=== PATIENT | male | born 1970 | race Caucasian/White ===

== ENCOUNTER 2016-04-12 02:50 | Observation (INO) | payer OTHER ==
[~2016-04-12] VITALS: Ht 180.3 cm; Wt 141.7 kg
[2016-04-12] VITALS (7 sets, daily range): BP systolic 120–143; BP diastolic 74–84; PULSE 64–74; TEMP 36.5–36.6; O2SAT 94–95; Ht 180.3 cm; Wt 141.7 kg
[2016-04-12 03:37] LABS: BASO % 0.2 %; BASO ABS # 0.01 K/uL (0-0.2); COMPLETE YES; EOS % 1.5 %; HEMATOCRIT 41.9 % (42-52); IG% 0.6 %; LYMPH % 14.2 %; LYMPH ABS # 0.93 K/uL (1.2-3.4); MEAN CELL VOLUME 89.9 fL (80-100); MEAN CORPUSCULAR HGB CONC 35.6 g/dl (32-36); MEAN PLATELET VOLUME 10.6 fL (7.4-10.4); MONO % 8.7 %; NEUT % 74.8 %; PLATELET COUNT 248 K/uL (130-400); RED BLOOD COUNT 4.66 M/uL (4.7-6.1); WHITE BLOOD COUNT 6.56 K/uL (4.8-10.8)
--- NOTE | 2016-04-12 03:59 | EMERGENCY ROOM VISIT NOTE ---
History Report prepared by Ale: Spencer Tolbert Under the Supervision of: Dr. Inna Jackson D.O. First contact with patient: 03:03 Chief Complaint: CHEST PAIN Stated Complaint: DULL PAIN IN CHEST,LEFT ARM NUMB AND HOT Nursing Triage Summary: Left sided chest pain radiating down left arm with inspiration. 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 The pain is rated 5/10 in severity. 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 He also has numbness radiating down his left arm to the 4th and 5th digits. The patient has also had some abdominal pain and diarrhea. He denies radiation to the jaw. The patient also denies any fevers, chills, or abnormal shortness of breath. The patient never had these symptoms before. His father had a CABG x 4 in his 60's. He does not have a history of diabetes. Source of History: patient Onset: two days Position: chest (left upper) Symptom Intensity: 5/10 Quality: pressure Timing: constant Modifying Factors (Worsening): exertion Associated Symptoms: + abdominal pain, + diarrhea, + numbness, No SOB, No chills, No fevers Review of Systems See HPI for pertinent positives & negatives. A total of 10 systems reviewed and were otherwise negative. Past Medical & Surgical Medical Problems: (1) MS (multiple sclerosis) Family History Heart disease Social History Smoking Status: Current Every Day Smoker Housing Status: lives with family Current/Historical Medications Scheduled Ascorbic Acid (Ascorbic Acid), Unknown Dose PO DAILY Aspirin (Aspirin Ec), 81 MG PO DAILY Cholecalciferol (Vitamin D3), 2,000 UNITS PO BID Citalopram (Citalopram Hydrobromide), Unknown Dose PO DAILY Dimethyl Fumarate (Tecfidera), Unknown Dose PO DAILY Fish Oil (Peru-3), 1 CAP PO DAILY Lisinopril (Zestril), Unknown Dose PO DAILY Thiamine Hcl (Vitamin B-1), Unknown Dose PO DAILY Vitamin E (Vitamin E-400), Unknown Dose PO DAILY Allergies Coded Allergies: Fish Allergy (Verified Allergy, Unknown, unknown, 04/12/16) Physical Exam Vital Signs Date Time Temp Pulse Resp B/P Pulse Ox O2 Delivery O2 Flow Rate FiO2 04/12/16 04:00 78 20 147/81 95 Room Air 04/12/16 03:32 Room Air 04/12/16 03:26 85 04/12/16 03:11 95 Room Air 04/12/16 03:08 36.9 83 16 155/83 93 Room Air Physical Exam HEENT: Head - normocephalic and atraumatic Pupils are equal, round, and reactive to light. Extraocular eye muscles are intact, and sclera are anicteric. Nose - moist nasal mucosa without discharge. Mouth - moist buccal mucosa. Oropharynx is nonerythematous and there is no tonsillar exudate or edema noted. Neck: Supple; no JVD, nuchal rigidity, cervical lymphadenopathy, or auscultated bruits. Heart: Regular rate and rhythm. There is a normal S1 and S2 with no murmurs, clicks, or gallops appreciated. Lungs: Clear to auscultation bilaterally with no wheezes, rales, or rhonchi. Abdomen: Soft, completely nontender, nondistended, with good bowel sounds. There are no palpable pulsatile masses or hepatosplenomegaly. There is no guarding, rigidity, or rebound noted. Extremities: No evidence of cyanosis, clubbing, or edema. There are easily palpable peripheral pulses. Skin: warm and dry with good turgor and no rashes. Medical Decision & Procedures ER Provider Diagnostic Interpretation: X-ray results as stated below per interpretation by me. PORTABLE ONE VIEW CHEST: Significant cardiomegaly. No pulmonary infiltrates or pleural effusions. Laboratory Results 04/12/16 03:27 Red Blood Count 4.66, Mean Corpuscular Volume 89.9, Mean Corpuscular Hemoglobin 32.0, Mean Corpuscular Hemoglobin Concent 35.6, Mean Platelet Volume 10.6, Neutrophils (%) (Auto) 74.8, Lymphocytes (%) (Auto) 14.2, Monocytes (%) (Auto) 8.7, Eosinophils (%) (Auto) 1.5, Basophils (%) (Auto) 0.2, Neutrophils # (Auto) 4.91, Lymphocytes # (Auto) 0.93, Monocytes # (Auto) 0.57, Eosinophils # (Auto) 0.10, Basophils # (Auto) 0.01 04/12/16 03:27 Test 04/12/16 03:27 White Blood Count 6.56 K/uL (4.8-10.8) Red Blood Count 4.66 M/uL (4.7-6.1) Hemoglobin 14.9 g/dL (14.0-18.0) Hematocrit 41.9 % (42-52) Mean Corpuscular Volume 89.9 fL (80-100) Mean Corpuscular Hemoglobin 32.0 pg (25-34) Mean Corpuscular Hemoglobin Concent 35.6 g/dl (32-36) Platelet Count 248 K/uL (130-400) Mean Platelet Volume 10.6 fL (7.4-10.4) Neutrophils (%) (Auto) 74.8 % Lymphocytes (%) (Auto) 14.2 % Monocytes (%) (Auto) 8.7 % Eosinophils (%) (Auto) 1.5 % Basophils (%) (Auto) 0.2 % Neutrophils # (Auto) 4.91 K/uL (1.4-6.5) Lymphocytes # (Auto) 0.93 K/uL (1.2-3.4) Monocytes # (Auto) 0.57 K/uL (0.11-0.59) Eosinophils # (Auto) 0.10 K/uL (0-0.5) Basophils # (Auto) 0.01 K/uL (0-0.2) RDW Standard Deviation 41.0 fL (36.4-46.3) RDW Coefficient of Variation 12.6 % (11.5-14.5) Immature Granulocyte % (Auto) 0.6 % Immature Granulocyte # (Auto) 0.04 K/uL (0.00-0.02) Prothrombin Time 9.6 SECONDS (9.0-12.0) Prothromb Time International Ratio 0.9 (0.9-1.1) Activated Partial Thromboplast Time 28.0 SECONDS (21.0-31.0) Partial Thromboplastin Ratio 1.1 D-Dimer < 190 ug/L FEU (0-500) Anion Gap 12.0 mmol/L (3-11) Est Creatinine Clear Calc Drug Dose 143.3 ml/min Estimated GFR () 109.6 Estimated GFR (Non- 94.6 BUN/Creatinine Ratio (10-20) Calcium Level 8.4 mg/dl (8.5-10.1) Total Creatine Kinase U/L (39-308) Creatine Kinase MB 1.6 ng/ml (0.5-3.6) Creatine Kinase MB Ratio (0-3.0) Pro-B-Type Natriuretic Peptide 42 pg/ml (0-450) Lipase 162 U/L (73-393) Laboratory results per my review. ECG Indication: chest pain Rate (beats per minute): 82 Rhythm: normal sinus Findings: no acute ischemic change, no ectopy ED Course 0308: The patient was evaluated by the [facility]. A twelve-lead EKG was obtained. 0325: Past medical records reviewed. The patient was evaluated in room A12b. A complete history and physical exam was performed. An IV lock was initiated and labs are drawn as above. The patient is chest pain-free at this time. Patient had chest x-ray performed as described above. 0540: The patient is still comfortable. [facility] so he will go unassigned for a chest pain rule out. 0547: Updated the patient. I explained everything to him. He verbalized understanding and agreement. 0550: [facility] The patient will be evaluated. Medical Decision The patient is a 46 year old male who presents to the ED with chest pain. Differential diagnosis includes PE, acute coronary syndrome, NSTEMI, costochondritis, GERD, aortic dissection. Laboratory interpretation: No leukocytosis, stable H&H, BUN 25, creatinine 0.9, troponin 0.037, lipase 162, coags normal. This is a 46-year-old male patient presents to emergency department with chest pain. The pain has resolved on his own. Chest x-ray is unremarkable. He has no associated shortness of breath or hypoxia. He does have a family history of heart disease as his father had quadruple bypass surgery. He has been tested for hypercholesterolemia and this has been negative. The patient is symptom- free at this time. [facility] and [facility] will [facility] for further management. Consults Time Called: 0545 Consulting Physician: [facility] [place] [facility] Returned Call: [phone]: Discussed the case with Dr. Erickson [place] [facility]. The patient will be evaluated. Impression Primary Impression: Left sided chest pain Scribe Attestation The scribe's documentation has been prepared under my direction and personally reviewed by me in its entirety. I confirm that the note above accurately reflects all work, treatment, procedures, and medical decision making performed by me. Departure Information Dispostion Being Evaluated By Hospitalist Referrals No Doctor, Assigned (PCP) Patient Instructions A Signature Page, My [facility]
[2016-04-12 04:19] LABS: INR 0.9 (0.9-1.1); PARTIAL THROMBOPLASTIN RATIO 1.1; PROTHROMBIN TIME (PATIENT) 9.6 SECONDS (9.0-12.0)
[2016-04-12 04:28] LABS: BLOOD UREA NITROGEN 25 mg/dl (7-18); CALCIUM 8.4 mg/dl (8.5-10.1); CARBON DIOXIDE 27 mmol/L (21-32); CHLORIDE 106 mmol/L (98-107); CREATININE 0.97 mg/dl (0.60-1.40)
[2016-04-12 04:41] LABS: GLUCOSE 118 mg/dl (70-99); SODIUM 145 mmol/L (136-145)
[2016-04-12] MEDS ORDERED: ONDANSETRON INJ 2 MG/ML 2 ML VIAL IV PRN (06:00)
[2016-04-12] MEDS ORDERED: NITROGLYCERIN 0.4 MG SL PER TAB CHARGE SL PRN (06:00)
[2016-04-12] MEDS ORDERED: MoRPHine SULFATE 2 MG/ML CARP IV PRN (06:00)
[2016-04-12] MEDS ORDERED: POLYETHYLENE (MIRALAX) 17 GM PACK PO PRN (06:00)
[2016-04-12] MEDS ORDERED: MAGNESIUM HYDROXIDE SUSP 30 ML UDC PO PRN (06:00)
[2016-04-12] MEDS ORDERED: ALUMINUM/MAGNESIUM/SIMETH (MAALOX MAX) 30 ML UDC PO PRN (06:00)
[2016-04-12] MEDS ORDERED: ZOLPIDEM TARTRATE 5 MG TAB PO PRN (06:00)
[2016-04-12] MEDS ORDERED: ACETAMINOPHEN 325 MG TAB PO PRN (06:00)
--- NOTE | 2016-04-12 06:11 | History and Physical ---
History & Physical Date & Time of Service: Apr 12, 2016 at 06:01 Chief Complaint: Dull Pain In Chest,Left Arm Numb And Hot Primary Care Physician: No Doctor, Assigned History of Present Illness Source: patient 46 y/o M Hx HTN, MS, PTSD - presents with intermittent L sided CP radiateing into shoulder and causing L arm numbness. Denies associate SOB, N/V, diaphoresis. Past Medical/Surgical History Medical Problems: (1) MS (multiple sclerosis) Status: Chronic 2) HTN 3) PTSD 4) Obesity Family History Heart disease Father had quadruple bypass at age 68 Social History Diasabled due to MS and PTSD - smokes 2 Cigarelles/day - states he does not inhale - drinks 12 beers/month Smoking Status: Current Every Day Smoker Allergies Coded Allergies: No Known Allergies (Unverified , 04/12/16) Review of Systems Constitutional: No chills, No fever, No sweats Eyes: No worsening of vision ENT: No hearing loss, No unusual epistaxis Respiratory: No cough, No sputum, No wheezing Cardiovascular: No chest pain, No orthopnea Abdomen: No nausea, No pain Musculoskeletal: No joint pain Genitourinary - Male: No dysuria, No hematuria, No urinary frequency Neurologic: No memory loss, No paralysis, No weakness (denies recent MS- related weakness) Psychiatric: No depression symptoms Endocrine: No fatigue Hematologic / Lymphatic: No abnormal bleeding/bruising Integumentary: No rash Allergic / Immunologic: No environmental allergies Physical Exam Vital Signs Date Time Temp Pulse Resp B/P Pulse Ox O2 Delivery O2 Flow Rate FiO2 04/12/16 04:00 78 20 147/81 95 Room Air 04/12/16 03:32 Room Air 04/12/16 03:26 85 04/12/16 03:11 95 Room Air 04/12/16 03:08 36.9 83 16 155/83 93 Room Air General Appearance: WD/WN, no apparent distress, + pertinent finding (Obese middle-aged male in no acute distress) Head: normocephalic, atraumatic Eyes: normal inspection, PERRL, EOMI ENT: normal ENT inspection, pharynx normal Neck: supple, no JVD Respiratory/Chest: chest non-tender, lungs clear, normal breath sounds, no respiratory distress, no accessory muscle use Cardiovascular: regular rate, rhythm, no edema, no gallop, no JVD, no murmur, normal peripheral pulses Abdomen/GI: normal bowel sounds, non tender, soft Back: normal inspection, no CVA tenderness Extremities/Musculoskelatal: normal inspection, no calf tenderness, normal capillary refill, no pedal edema, normal range of motion Neurologic/Psych: core machine tender II-XII nml as tested, no motor/sensory deficits, alert, normal mood/affect, normal reflexes, oriented x 3 Skin: normal color, warm/dry, no rash (acne is present on back) Diagnostics Laboratory Results Results Past 24 Hours Test 04/12/16 03:27 Range/Units White Blood Count 6.56 4.8-10.8 K/uL Red Blood Count 4.66 4.7-6.1 M/uL Hemoglobin 14.9 14.0-18.0 g/dL Hematocrit 41.9 42-52 % Mean Corpuscular Volume 89.9 80-100 fL Mean Corpuscular Hemoglobin 32.0 25-34 pg Mean Corpuscular Hemoglobin Concent 35.6 32-36 g/dl Platelet Count 248 130-400 K/uL Mean Platelet Volume 10.6 7.4-10.4 fL Neutrophils (%) (Auto) 74.8 % Lymphocytes (%) (Auto) 14.2 % Monocytes (%) (Auto) 8.7 % Eosinophils (%) (Auto) 1.5 % Basophils (%) (Auto) 0.2 % Neutrophils # (Auto) 4.91 1.4-6.5 K/uL Lymphocytes # (Auto) 0.93 1.2-3.4 K/uL Monocytes # (Auto) 0.57 0.11-0.59 K/uL Eosinophils # (Auto) 0.10 0-0.5 K/uL Basophils # (Auto) 0.01 0-0.2 K/uL RDW Standard Deviation 41.0 36.4-46.3 fL RDW Coefficient of Variation 12.6 11.5-14.5 % Immature Granulocyte % (Auto) 0.6 % Immature Granulocyte # (Auto) 0.04 0.00-0.02 K/uL Prothrombin Time 9.6 9.0-12.0 SECONDS Prothromb Time International Ratio 0.9 0.9-1.1 Activated Partial Thromboplast Time 28.0 21.0-31.0 SECONDS Partial Thromboplastin Ratio 1.1 D-Dimer < 190 0-500 ug/L FEU Sodium Level 145 136-145 mmol/L Potassium Level 3.5-5.1 mmol/L Chloride Level 106 98-107 mmol/L Carbon Dioxide Level 27 21-32 mmol/L Anion Gap 12.0 3-11 mmol/L Blood Urea Nitrogen 25 7-18 mg/dl Creatinine 0.97 0.60-1.40 mg/dl Est Creatinine Clear Calc Drug Dose 143.3 ml/min Estimated GFR () 109.6 Estimated GFR (Non- 94.6 BUN/Creatinine Ratio 10-20 Random Glucose 118 70-99 mg/dl Calcium Level 8.4 8.5-10.1 mg/dl Total Creatine Kinase 39-308 U/L Creatine Kinase MB 1.6 0.5-3.6 ng/ml Creatine Kinase MB Ratio 0-3.0 Troponin I 0.037 0-0.045 ng/ml Pro-B-Type Natriuretic Peptide 42 0-450 pg/ml Lipase 162 73-393 U/L Normal EKG Impression Assessment and Plan 46 y/o M Hx HTN, MS, PTSD - presents with intermittent L sided CP radiateing into shoulder and causing L arm numbness. Denies associate SOB, N/V, diaphoresis. 1) CP - trop x 3 - monitor on telemetry - NTG or morphine PRN for pain - may need inptstress with recurrent symptoms - differential may include MS related muscle spasm. 2) HTN - slightly elevated BP - has cut down his Lisinopril as he states it is making him cough - a substitution can be provide prior to D/C or refer back to his MD 3) MS - no recent flare - cont Tecfidera BID 4) Smoking cessation counseling Full code Total time for this admit including discussion with ER MD, review of labs, EKG, med-rec - 26 min Level of Care Telemetry Resuscitation Status FULL RESUSCITATION VTE Prophylaxis VTE Risk Assessment Done? Y/N: Yes Risk Level: Low Given or contraindicated: Unfractionated heparin SQ
[2016-04-12] MEDS ORDERED: DIME1CAP PO (06:21)
[2016-04-12] MEDS ORDERED: LISI-461 PO (06:22)
[2016-04-12] MEDS ORDERED: OMEG10007 PO (06:23)
[2016-04-12] MEDS ORDERED: CHOL20007 PO (06:23)
[2016-04-12] MEDS ORDERED: CITA40TA4 PO (06:24)
[2016-04-12] MEDS ORDERED: ASPI81TA28 PO (06:24)
[2016-04-12] MEDS ORDERED: [UNRECOGNIZED DRUG - CODE] PO (06:26)
[2016-04-12] MEDS ORDERED: THIA50TA3 PO (06:27)
[2016-04-12] MEDS ORDERED: ASCO500T16 PO (06:27)
[2016-04-12] MEDS ORDERED: IV FLUIDS COMPLETED PRN (06:45)
--- NOTE | 2016-04-12 08:18 | DIAGNOSTIC IMAGING REPORT ---
CHEST ONE VIEW PORTABLE HISTORY: Atypical chest pain. COMPARISON: None. FINDINGS: The heart is top normal in size for the AP portable technique. The lungs are clear. No pleural effusions. No pneumothorax. IMPRESSION: No acute process. Electronically signed by: Donis Bro M.D. 04/12/2016 8:16 AM Dictated Date/Time: 04/12/2016 8:15 AM
[2016-04-12] MEDS: ASPIRIN 81 MG ECTAB PO SCH (08:47)
[2016-04-12] MEDS: LISINOPRIL 20 MG TAB PO SCH (08:48)
[2016-04-12] MEDS: HEPARIN SOD 5000 UNIT/0.5 ML CARP SQ SCH ×2 (08:51→17:03)
[2016-04-12] MEDS ORDERED: PERFLUTREN LIPID MICROSPHERE (DEFINITY) IV ONE (11:08)
[2016-04-12] MEDS: SODIUM CHLORIDE 0.9% 1000ML 1,000 ML IV SCH ×2 (11:23→20:34)
--- NOTE | 2016-04-12 11:41 | ECHOCARDIOGRAM REPORT ---
*NOTICE TO RECEIVING GREEN [employer]Y AGENCY This information is strictly Confidential and protected under [place] law. [place] law prohibits you from making any further disclosure of this information unless further disclosure is expressly permitted by the written consent of the person to whom it pertains or is authorized by law. A general authorization for the release of medical or other information is not sufficient for this purpose. Hospital accepts no responsibility if the information is made available to any other person, INCLUDING THE PATIENT. Interpretation Summary * Name: BRINDA STEVENS SR Study Date: 04/12/2016 11:43 AM BP: 143/75 mmHg * Patient Location: [facility]\S\N283\S\2 HR: 74 * : 1970 (M/d/yyyy) Gender: Male Height: 71 in * Age: 46 yrs Ethnicity: CA Weight: 325 lb * Ordering Physician: Endy Bhandari * Performed By: Constanza Calloway * * Reason For Study: CHEST PAIN * BSA: 2.6 m2 -- Conclusions -- * 1. LVEF 65% with mild LVH. Normal segmental wall motion at rest. * 2. No significant regurgitation or stenosis. * 3. Normal PASP. Procedure Details * A complete two-dimensional transthoracic echocardiogram was performed (2D, M-mode, Doppler and color flow Doppler). * A contrast injection of Definity was performed to improve assessment of LV function. * Contrast was injected into an intravenous site in the right arm. * One vial of Definity ultrasound contrast was diluted in normal saline to a total volume of 10 ml. A total of '2' ml of solution was administered during imaging. * Lot # [id number] of Definity utilized for procedure. * Expiration date 09/19. * The attending nurse who injected the contrast agent was HAN SMITH RN. Left Ventricle * The left ventricle is grossly normal size. * There is mild concentric left ventricular hypertrophy. * Ejection Fraction = 65-70%. * The left ventricular wall motion is normal at rest. Right Ventricle * The right ventricle is grossly normal size. * The right ventricular systolic function is normal. Atria * The left atrium is mildly dilated. * Right atrial size is normal. Mitral Valve * The mitral valve is normal in structure and function. Tricuspid Valve * The tricuspid valve is normal in structure and function. * The tricuspid valve is not well visualized. * Right ventricular systolic pressure is normal. Aortic Valve * The aortic valve is normal in structure and function. Pulmonic Valve * The pulmonic valve is not well visualized. MMode 2D Measurements and Calculations IVSd 1.2 cm IVSs 1.9 cm LVIDd 4.5 cm LVIDs 2.9 cm LVPWd 1.0 cm LVPWs 1.9 cm IVS/LVPW 1.1 FS 36.2 % EDV(Teich) 92.8 ml ESV(Teich) 31.5 ml EF(Teich) 66.1 % EDV(cubed) 91.6 ml ESV(cubed) 23.7 ml EF(cubed) 74.1 % % IVS thick 66.3 % % LVPW thick 91.3 % LV mass(C)d 172.3 grams LV mass(C)dI 66.5 grams/m\S\2 LV mass(C)s 235.5 grams LV mass(C)sI 90.9 grams/m\S\2 SV(Teich) 61.3 ml SI(Teich) 23.7 ml/m\S\2 SV(cubed) 67.9 ml SI(cubed) 26.2 ml/m\S\2 ACS 1.5 cm LA dimension 4.8 cm asc Aorta Diam 3.2 cm LVOT diam 1.9 cm LVOT area 2.9 cm\S\2 LVAd ap4 41.8 cm\S\2 LVLd ap4 10.1 cm EDV(MOD-sp4) 141.1 ml EDV(sp4-el) 146.4 ml LVAs ap4 20.7 cm\S\2 LVLs ap4 8.5 cm ESV(MOD-sp4) 41.6 ml ESV(sp4-el) 42.7 ml EF(MOD-sp4) 70.5 % EF(sp4-el) 70.9 % LVAd ap2 36.6 cm\S\2 LVLd ap2 10.4 cm EDV(MOD-sp2) 106.3 ml EDV(sp2-el) 109.5 ml LVAs ap2 16.7 cm\S\2 LVLs ap2 7.7 cm ESV(MOD-sp2) 29.2 ml ESV(sp2-el) 30.6 ml EF(MOD-sp2) 72.5 % EF(sp2-el) 72.0 % LVLd %diff 2.1 % EDV(MOD-bp) 124.1 ml LVLs %diff -10.15 % ESV(MOD-bp) 36.2 ml EF(MOD-bp) 70.8 % SV(MOD-sp4) 99.6 ml SI(MOD-sp4) 38.4 ml/m\S\2 SV(MOD-sp2) 77.1 ml SI(MOD-sp2) 29.8 ml/m\S\2 SV(MOD-bp) 87.9 ml SI(MOD-bp) 33.9 ml/m\S\2 SV(sp4-el) 103.8 ml SI(sp4-el) 40.0 ml/m\S\2 SV(sp2-el) 78.9 ml SI(sp2-el) 30.4 ml/m\S\2 Doppler Measurements and Calculations MV E max gracy 97.0 cm/sec MV A max gracy 106.7 cm/sec MV E/A 0.91 MV dec time 0.25 sec Ao V2 max 154.3 cm/sec Ao max PG 9.5 mmHg Ao max PG (full) 1.3 mmHg WILLIAM(V,A) 2.7 cm\S\2 WILLIAM(V,D) 2.7 cm\S\2 LV V1 max PG 8.2 mmHg LV V1 mean PG 2.6 mmHg LV V1 max 143.3 cm/sec LV V1 mean 67.3 cm/sec LV V1 VTI 28.0 cm SV(LVOT) 82.0 ml SI(LVOT) 31.6 ml/m\S\2 PA V2 max 110.0 cm/sec PA max PG 4.8 mmHg TR max gracy 219.1 cm/sec
[2016-04-12] MEDS ORDERED: PANTOprazole SOD 40 MG TAB PO STA (11:53)
[2016-04-12] MEDS ORDERED: NURSING VERBAL MED ORDER ONE (19:00)
--- NOTE | 2016-04-12 20:09 | Progress Note ---
Progress Note Hospitalist Note: 04/12/16 1900 S: no recurrent chest pain or sob since admission he has NOT had any exertional cp or sob over the last few months at home does admit to eating a hoagie sub, venison, drinking 2 beers, and drinking 2 shots about 1-2 hours prior to the pain episode occurring last night. he also has some epigastric pain this afternoon. telemetry normal since admission. O: VSS, afebrile gen - obese heart - RRR, s1, s2 chest - no reproducible pain lungs - CTA b/l abd - tender high epigastric region w/ palpation, obese, soft ext - no edema, pulses 2+ b/l labs - trop scantly elevated on 2nd/3rd set repeat EKG - my reading - NSR, no ST changes echo - nl EF, normal wall motion, normal valve fx A/P: 1. chest pain - resolved, but w/ scantly elevated troponin. 2. tobacco dependence 3. HTN - controlled 4. morbid obesity 5. epigastric discomfort - GERD? 6. family h/o CAD NPO after MN for stress echo in AM PPI for possible GERD check 1 more set of enzymes tonight check TSH, lipids, a1c in AM Patient understands plan of care Karol WINKLER MD
[2016-04-12] MEDS: DIMETHYL FUMARATE 240 MG PO SCH (21:00)
[2016-04-12 21:11] LABS: CKMB/CK RATIO 1.3 (0-3.0)
[2016-04-13 00:01] VITALS: BP 136/86; PULSE 61; TEMP 36.5; O2SAT 95
[2016-04-13] MEDS: SODIUM CHLORIDE 0.9% 1000ML 1,000 ML IV SCH ×2 (01:05→07:56)
[2016-04-13 04:29] VITALS: BP 131/85; PULSE 62; TEMP 36.6; O2SAT 94
[2016-04-13 07:14] LABS: CHOLESTEROL/HDL RATIO 6.4; THYROID STIMULATING HORMONE 1.25 uIu/ml (0.300-4.500)
[2016-04-13 07:15] LABS: ESTIMATED AVERAGE GLUCOSE 100 mg/dl; HA1C FLAG Normal (Normal)
[2016-04-13 07:51] VITALS: BP 125/75; PULSE 58; TEMP 36.7; O2SAT 94
[2016-04-13] MEDS: LISINOPRIL 20 MG TAB PO SCH (07:54)
[2016-04-13] MEDS: ASPIRIN 81 MG ECTAB PO SCH (07:54)
[2016-04-13] MEDS: DIMETHYL FUMARATE 240 MG PO SCH (07:55)
[2016-04-13] MEDS: HEPARIN SOD 5000 UNIT/0.5 ML CARP SQ SCH ×2 (08:01)
[2016-04-13] MEDS ORDERED: PANTOprazole SOD 40 MG TAB PO SCH (09:00)
[2016-04-13] MEDS ORDERED: ATROPINE SULFATE 0.1 MG/ML 5ML SYR ONE (11:06)
[2016-04-13] MEDS ORDERED: METOPROLOL TARTRATE 1 MG/ML VIAL ONE (11:07)
[2016-04-13] MEDS ORDERED: DOBUTamine HCL 12.5 MG/ML 20 ML VIAL ONE (11:07)
[2016-04-13] MEDS ORDERED: PERFLUTREN LIPID MICROSPHERE (DEFINITY) IV ONE (11:55)
--- NOTE | 2016-04-13 12:07 | Discharge Instructions ---
Discharge Instructions Admission Reason for Admission: Left Sided Chest Pain Discharge Discharge Diagnosis / Problem: non cardiac chest pain Discharge Goals Goal(s): Diagnostic testing, Therapeutic intervention Activity Recommendations Activity Limitations: resume your previous activity . Instructions / Follow-Up Instructions / Follow-Up Please follow up with your family doctor to further evaluate your symptoms You may take the acid suppressing medication as this maybe your stomach or esophagus that is causing your problem Current Hospital Diet Patient's current hospital diet: AHA Diet (Heart Healthy) Discharge Diet Recommended Diet: Regular Diet Pending Studies Studies pending at discharge: no Laboratory Results Hemoglobin A1c Test 04/13/16 05:43 Range/Units Estimated Average Glucose 100 mg/dl Hemoglobin A1c 5.1 4.5-5.6 % Lipid Panel Test 04/13/16 05:43 Range/Units Triglycerides Level 247 H 0-150 mg/dl Cholesterol Level 180 0-200 mg/dl HDL Cholesterol 28 mg/dl Cholesterol/HDL Ratio 6.4 LDL Cholesterol, Calculated 103 mg/dl Medical Emergencies . Who to Call and When: Medical Emergencies: If at any time you feel your situation is an emergency, please call 911 immediately. . Non-Emergent Contact Non-Emergency issues call your: Primary Care Provider . . "Provider Documentation" section prepared by Alistair Lo. VTE Core Measure Inpt VTE Proph given/why not?: Unfractionated heparin SQ
[2016-04-13] MEDS ORDERED: LISI-461 PO (12:09)
[2016-04-13] MEDS ORDERED: PRT40 PO (12:10)
[2016-04-13 12:23] VITALS: BP 123/83; PULSE 66; TEMP 36.3; O2SAT 97
--- NOTE | 2016-04-13 12:26 | DOBUTAMINE ECHO ---
*NOTICE TO RECEIVING [employer] AGENCY This information is strictly Confidential and protected under [place] law. [place] law prohibits you from making any further disclosure of this information unless further disclosure is expressly permitted by the written consent of the person to whom it pertains or is authorized by law. A general authorization for the release of medical or other information is not sufficient for this purpose. Hospital accepts no responsibility if the information is made available to any other person, INCLUDING THE PATIENT. Interpretation Summary * Name: BRINDA STEVENS SR Study Date: 04/13/2016 09:59 AM BP: 131/86 mmHg * Patient Location: [facility]\S\N283\S\2 HR: 60 * : 1970 (M/d/yyyy) Gender: Male Height: 71 in * Age: 46 yrs Ethnicity: CA Weight: 325 lb * Ordering Physician: Endy Bhandari * Referring Physician: PETERSON * Performed By: Jeniffer Matthew RDCS * * Reason For Study: CHEST PAIN * BSA: 2.6 m2 * History: CHEST PAIN * -- Conclusions -- * Normal dobutamine stress echocardiogram at 85% predicted maximum. * No dobutamine induced chest pain. * No ECG changes. * Baseline echocardiogram notes normal left ventricular systolic function. Procedure Details * DOBUTAMINE ECHO, CPT#43705 * A contrast injection of Definity was performed to improve assessment of LV function. * Contrast was injected into an intravenous site in the right arm. * One vial of Definity ultrasound contrast was diluted in normal saline to a total volume of 10 ml. A total of '6' ml of solution was administered during imaging. * Lot # [id number] of Definity utilized for procedure. * Expiration date SEP 19. * The attending nurse who injected the contrast agent was NICOLE HARRY RN. Left Ventricle * Resting wall motion: Normal. Stress wall motion: Appropriate increase in Left ventricular systolic function and decrease in cavity size. No stress induced segmental wall motion abnormalities. Stress Parameters * Normal baseline electrocardiogram. * The stress ECG response was normal * The stress portion of this study was personally supervised by the undersigned interpreting physician. * Rest heart rate was '60' BPM. * Rest blood pressure was '131/86' * Maximum heart rate achieved was 148 bpm. * Maximum heart rate was 84 % of maximum age-predicted heart rate. * Maximum blood pressure was '253/109' * Maximum Dobutamine infusion rate was '40' mcg/kg/min. * A total of 1 mg of intravenous Atropine was used to supplement Dobutamine for heart rate response. * Dobutamine infusion was terminated due to achieving target heart rate * A total of 10 mg of IV Metoprolol was administered to reverse Dobutamine-induced tachycardia. Left Ventricular Findings with Stress * Normal dobutamine stress echocardiogram at 85% predicted maximum. No dobutamine induced chest pain. No ECG changes. Baseline echocardiogram notes normal left ventricular systolic function.
[2016-04-13 13:06] VITALS: BP 123/83; PULSE 66; TEMP 36.3; O2SAT 97
--- NOTE | 2016-04-13 14:07 | Discharge Summary ---
Discharge Summary Admission Date: Apr 12, 2016 at 05:57 Discharge Date: Apr 13, 2016 Discharge Disposition: Home Principal Diagnosis: non cardiac chest pain Procedures: stress echo negative for rwma or suggestion of ischemia Medication Reconciliation New Medications: Pantoprazole (Pantoprazole Sodium) 40 Mg Tab 40 MG PO QAM, #30 TAB 2 Refills Continued Medications: Ascorbic Acid (Ascorbic Acid) 500 Mg Tab Unknown Dose PO DAILY, TAB Aspirin (Aspirin Ec) 81 Mg Tab 81 MG PO DAILY Cholecalciferol (Vitamin D3) 2,000 Unit Tab 2000 UNITS PO BID for 30 Days, TAB 5 Refills Citalopram (Citalopram Hydrobromide) 40 Mg Tab Unknown Dose PO DAILY Dimethyl Fumarate (Tecfidera) 120 Mg Cap Unknown Dose PO DAILY Fish Oil ([place]-3) 1 Ea Cap 1 CAP PO DAILY, CAP Lisinopril (Zestril) 10 Mg Tab 20 MG PO DAILY, #30 TAB Thiamine Hcl (Vitamin B-1) 50 Mg Tab Unknown Dose PO DAILY, TAB Vitamin E (Vitamin E-400) 400 Unit Cap Unknown Dose PO DAILY Discharge Exam Review of Systems: Constitutional: No chills, No fever, No sweats Respiratory: No cough, No sputum Cardiovascular: No chest pain, No orthopnea Abdomen: No nausea, No pain, No vomiting Musculoskeletal: No joint pain, No muscle pain Genitourinary - Male: No dysuria, No hematuria Physical Exam: General Appearance: WD/WN, no apparent distress Eyes: PERRL, EOMI Neck: supple, no JVD Respiratory/Chest: chest non-tender, lungs clear, normal breath sounds Cardiovascular: regular rate, rhythm, no murmur Abdomen / GI: normal bowel sounds, non tender, soft Extremities: no pedal edema, normal range of motion Neurologic/Psychiatric: alert, oriented x 3 Hospital Course PT admitted with atypical chest pain, very small elevation of Troponin, underwent stress treadmill echo, negative for ischemia, pt offered protonix at discharge and will follow up with pcp Total Time Spent: Greater than 30 minutes This includes examination of the patient, discharge planning, medication reconciliation, and communication with other providers. Discharge Instructions Please refer to the electronic Patient Visit Report (Discharge Instructions) for additional information.
== END 2016-04-13 12:30 | disposition home or self-care (01) ==
LOC: ENRESERVTM → ENRESERVDT → C.EDB 02:54 → C.MED 05:57
PROVIDERS: ADMIT Internal Medicine; ATTEND Internal Medicine
DX: R07.89 Other chest pain (principal); E66.01 Morbid (severe) obesity due to excess calories; E78.00 Pure hypercholesterolemia, unspecified; F17.210 Nicotine dependence, cigarettes, uncomplicated; G35 Multiple sclerosis; G80.9 Cerebral palsy, unspecified; I10 Essential (primary) hypertension; I25.10 Atherosclerotic heart disease of native coronary artery without angina pectoris; K21.9 Gastro-esophageal reflux disease without esophagitis; R20.0 Anesthesia of skin

== ENCOUNTER → 2017-01-25 | Outpatient (CLI) | payer OTHER ==
[~2017-01-25] MED LIST: ASCO500T16 PO; ASPI81TA28 PO; CHOL20007 PO; CITA40TA4 PO; DIME1CAP PO; LISI-461 PO; OMEG10007 PO; PRT40 PO; THIA50TA3 PO; [UNRECOGNIZED DRUG - CODE] PO
--- NOTE | 2017-01-26 17:21 | EEG Procedure Note ---
EEG Procedure Note Date of Service Jan 25, 2017. Start / End Times Start Time: 2:03 PM End Time: 2:49PM (patient stopped study early) Referring Physician REAGAN Cheng History This is a 46-year-old male with seizure-like activity. Extended EEG for further evaluation of possible seizure etiology. Home Medication List Scheduled Ascorbic Acid (Ascorbic Acid), Unknown Dose PO DAILY Aspirin (Aspirin Ec), 81 MG PO DAILY Cholecalciferol (Vitamin D3), 2,000 UNITS PO BID Citalopram (Citalopram Hydrobromide), Unknown Dose PO DAILY Dimethyl Fumarate (Tecfidera), Unknown Dose PO DAILY Fish Oil ([place]-3), 1 CAP PO DAILY Lisinopril (Zestril), 20 MG PO DAILY Pantoprazole (Pantoprazole Sodium), 40 MG PO QAM Thiamine Hcl (Vitamin B-1), Unknown Dose PO DAILY Vitamin E (Vitamin E-400), Unknown Dose PO DAILY Description This is a 21 electrode EEG with a single channel dedicated to limited EKG. The electrodes were placed in accordance with the International 10-20 system. At the start of the recording the patient was in an awake state. Background was well organized and composed of symmetric mixed alpha and beta frequencies. There was a symmetric well-formed moderate amplitude 10-11 Hz posterior dominant rhythm that was reactive to eye opening and closure. Hyperventilation was not done. Intermittent photic stimulation at various frequencies produced no abnormalities. Drowsiness was indicated by loss of muscle artifact and slowing of the background rhythm. There was no sleep transients. Interpretation This is a normal awake and drowsy extended EEG. There was no electrographic seizures or epileptiform discharges. Clinical Correlation A normal EEG does not rule out epilepsy if there is a strong clinical suspicion.
== END | disposition home or self-care (01) ==
LOC: C.NEUR 13:40
PROVIDERS: ATTEND Physician Assistant
DX: R56.9 Unspecified convulsions (principal)

== ENCOUNTER → 2017-01-29 | Outpatient (CLI) | payer OTHER ==
[2017-01-29 16:50] LABS: LYME DISEASE AB IGG NEG (NEG); LYME DISEASE AB IGM NEG (NEG)
== END | disposition home or self-care (01) ==
LOC: C.LAB 14:26
PROVIDERS: ATTEND Physician Assistant
DX: R56.9 Unspecified convulsions (principal); G35 Multiple sclerosis